=== PATIENT | female | born 1945 | race Caucasian/White ===

== ENCOUNTER → 2018-12-10 | Day surgery (SDC) | payer MEDICARE ==
[2018-12-08 14:43] LABS: BASOPHILS # (AUTO) 0.1 (0.0-0.1); EOSINOPHILS # (AUTO) 0.2 (0.0-0.4); EOSINOPHILS % 1.7 % (0.0-6.0); HEMATOCRIT 34.9 % (34.2-44.1); HEMOGLOBIN 11.3 g/dL (12.0-16.0); LYMPHOCYTES # (AUTO) 2.5 (1.0-3.2); LYMPHOCYTES % 27.8 % (18.0-39.1); MEAN CORPUSCULAR HGB CONC 32.4 g/dL (31-35); MEAN CORPUSCULAR VOLUME 86.4 fL (81-99); MONOCYTES # (AUTO) 0.9 (0.2-0.8); NEUTROPHILS # (AUTO) 5.4 (2.1-6.9); NEUTROPHILS % 59.2 % (38.7-80.0); PLATELET COUNT 335 x10e3/uL (140-360); RED BLOOD COUNT 4.04 x10e6/uL (3.6-5.1)
[2018-12-08 14:57] LABS: ALANINE AMINOTRANSFERASE 13 IU/L (0-55); ALBUMIN/GLOBULIN RATIO 1.1 (0.8-2.0); ALKALINE PHOSPHATASE 98 IU/L (40-150); ANION GAP 11.8 mmol/L (8-16); BLOOD UREA NITROGEN 13 mg/dL (7-26); BUN/CREATININE RATIO 16 (6-25); CALCIUM 9.8 mg/dL (8.4-10.2); CARBON DIOXIDE 27 mmol/L (22-29); CHLORIDE 100 mmol/L (98-107); EST GLOMERULAR FILTRATION RATE > 60 ML/MIN (60-); GLUCOSE 99 mg/dL (74-118); POTASSIUM 3.8 mmol/L (3.5-5.1); SODIUM 135 mmol/L (136-145)
--- NOTE | 2018-12-08 15:22 | Diagnostic Imaging Report ---
EXAMINATION: PA and lateral views of the chest. COMPARISON: None CLINICAL HISTORY: Preoperative study for urological procedure DISCUSSION: Lungs are well-inflated and without focal airspace consolidation, pleural effusion, or pneumothorax. Tortuous thoracic aorta with atherosclerotic calcification. Normal heart size. No overt pulmonary edema. Regional skeletal structures are intact. IMPRESSION: No acute cardiopulmonary abnormalities. Signed by: Dr. Josué Baird M.D. on 12/08/2018 3:19 PM
[~2018-12-10] MED LIST: ALBUTEROL SULF 0.083% NEB SOLN 3 ML NEB ONE; ALBUTEROL SULFAT2 MG PO; ALBUTEROL0.63 MG/3 NEB; BUPROPION HCL75 MG PO; CARVEDILOL12.5 MG PO; CEFAZOLIN SOD 2 GM/D5W 50ML 50 ML IV ONE; DEXAMETHASONE SOD PHOS INJ 4 MG/ML VIAL ONE; HYDROCODONE/APAP 5MG-325MG TAB ONE; IOPAMIDOL 610MG/1ML 300 MG/ML VIAL IV ONE; IPRATROPIU0.2 MG/1 M NEB; LIDOCAINE HCL 2% LOCAL INJ 5 ML SDV VIAL INJ ONE; MEPERIDINE HCL INJ 25 MG/ML VIAL ONE; MIDAZOLAM HCL 2 MG/2 ML VIAL ONE; ONDANSETRON HCL INJ 2MG/ML 2ML 2 MG/ML VIAL ONE; PROAIR HFA INH8.5 GM IJ; PROPOFOL IV EMULSION 10 MG/ML 20 ML VIAL ONE; SEVOFLURANE INHAL SOLN 250 ML PEN BTL ONE; SIMVASTATIN20 MG PO; SODIUM CHLORIDE 0.9% 50ML 50 ML ONE; TALTZ IJ; TRELEGY IJ
--- OUTSIDE RECORDS SUMMARY | 2018-12-10 16:04 | XMS REPORT ---
Author Author [facility] Address Unknown Phone Unavailable Care Team Providers [employer] Name Role Phone RM MACDONALD Unavailable Unavailable Problems This patient has no known problems. Allergies, Adverse Reactions, Alerts This patient has no known allergies or adverse reactions. Medications This patient has no known medications. Results Test Description Test Time Test Comments Text Results Atomic Results Result Comments CHEST 2 VIEWS 2018-12-08 15:18:00 [facility] [address] [place] [address] Patient Name: KANE FLORES MR #: [id number] : 1945 Age/Sex: 73/F Req #: [id number] Adm Physician: Ordered by: RM MACDOANLD MD Report #: [id number] Location: OR Room/Bed: Procedure: [id number] DX/CHEST 2 VIEWS Exam Date: 12/08/18 Exam Time: 1430 REPORT STATUS: Signed EXAMINATION: PA and lateral views of the chest. COMPAR ТАТЬЯНА: None CLINICAL HISTORY: Preoperative study for urological procedure DISCUSSION: Lungs are well-inflated and without focal airspace consolidation, pleural effusion, or pneumothorax. Tortuous thoracic aorta with atherosclerotic calcification. Normal heart size. No overt pulmonary edema. Regional skeletal structures are intact. IMPRESSION: No acute cardiopulmonary abnormalities. Signed by: Dr. Delfin Blank M.D. on 12/08/2018 3:19 PM Dictated By: DELFIN BLANK MD 18 Transcribed By: STEVEN on 12/08/181518 COPY TO: RM MACDONLAD MD
[2018-12-10 18:20] VITALS: BP 138/67
--- NOTE | 2018-12-11 16:24 | Operative Report ---
DATE OF PROCEDURE: 12/10/2018 SURGEON: Vick López MD PREOPERATIVE DIAGNOSIS: Gross hematuria. 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 OPERATION PERFORMED: Cystoscopy, retrograde pyelograms, barbotage for cytology after laser vaporization of a portion of the tumor, placement of right double-J and Dillon catheter, right flexible ureteroscopy was performed with laser evaporation. ANESTHESIOLOGIST: Staff. ANESTHESIA: General. FINDINGS: The patient had a normal urethra. The bladder showed no tumors or stones. There were multiple clots within the bladder that were irrigated out. Previous redness on the left side of the bladder seen on cystoscopy in the office was not visualized at this point. The patient had a ureteroscopy. The ureter was normal. There were no tumors seen. No abnormalities whatsoever. The kidney had blood and a few clots that were irrigated out. Visualization was fairly good. Pictures were taking of the findings. Upper pole calyx was totally abnormal. A tumor approximately 1.5 cm was noted in the infundibulum of the upper pole calyx. The calyx otherwise, once it was visualized, it was normal. Calyx is in the middle and lower pole. The edges did not look normal. The calyx itself looked slightly beefy red. At this point, laser was done of the tumor in the infundibulum upper pole calyx. Barbotage was done again. This was sent in separately. PROCEDURE IN DETAIL: With the patient under satisfactory general anesthesia, the patient was placed in the supine position on the operating table. Legs were placed on stirrups. Genitalia was then prepped with Betadine soap and solution and draped in usual manner. A #22-Urdu cystourethroscope was passed per urethra into the bladder. Using the #8 cone-tip ureteral catheter, contrast media was injected retrograde up the left ureter and the right ureter. Both ureteral orifices were normal. There were multiple clots in the bladder present. After the bladder was carefully inspected, the clots were removed, no other abnormalities were noted in the bladder and attention was placed to the retrograde pictures that showed a filling defect in the infundibulum of the upper pole right collecting system. At this point, an extra stiff guidewire was introduced all the way up to the kidney. The intermediate portion of the ureter was then dilated over the guidewire up to a size 12-Urdu and the digital flexible ureteroscope was introduced up the ureter removing the guidewire after the ureteroscope was placed in the ureter. Advancement of the ureteroscope was done slowly inspecting all of the frias of the ureter and there were no lesions seen. Once in the renal pelvis, there was blood. This had to be barbotage so that visualization could be done. The barbotage urine that was down with a syringe was sent in for pathological specimen, in other words for cytology. First calyx to look at was the lower pole calyx, the middle pole calyx would be looked next. No abnormalities in the infundibulum were noted, but the calyx itself showed some beefy redness, I do not know if it was from the blood that was present, reaction to that blood or if this was indicative of some disease. Looking at the upper pole infundibulum and calyx, one immediately noted that there was a mass in the infundibulum, this mass was bleeding. I looked in the frias of the infundibulum and the calyx and they looked completely abnormal, corrugated. The mass was approximately 1 cm to 1.5 cm. Attempts at engaging this mass with a Nitinol basket failed, I was trying to get some tissue to send in for pathological specimen. Having failed, then I introduced a 200 micron fiber of the laser and I shocked the tumor multiple times to get tissue floating in the kidney, which I quickly barbotage again using a syringe with normal saline and this was done twice, sending that specimen also for cytology. At this point, I attempted to stop the bleeding as best as I could with the laser. This was quite difficult, but at the end, it was not bleeding as much as when we started. There was still some oozing from that area. At that point, my decision was to put up a double-J for overnight. I placed a guidewire under direct vision. I filled up the pelvis with contrast media and removed the ureteroscope. Over the guidewire, a 6-Urdu Universa double-J was introduced and coiled in the renal pelvis. Once that was done, the sleeve was used to disengage the pusher and leave the double-J in place, the string was then taped to the patient's mons pubis. At that point, I introduced a size 16 Dillon catheter and left it indwelling. The patient was taken to the recovery room in satisfactory condition. DISCHARGE INSTRUCTION: I gave the patient some Keflex and tramadol. Diet as tolerated. Medicines that she takes at home can continue to be ingested. I gave the son, who was present in the waiting area video pictures, told him that I wanted to see her afternoon in my office so that I can remove the drains that I placed in. I also told him that she had a tumor that she needed to have further surgery and that I will see her in the office to arrange that day. MD JASON Pulido/JANETT /[id number]
--- NOTE | 2018-12-11 17:27 | Diagnostic Imaging Report ---
Retrograde pyelogram Technique: Fluoroscopic spot images are provided from intraoperative retrograde pyelogram. Request provided for diagnostic Radiology interpretation. History: Right-sided ureteroscopy, renal mass. Comparison: None. Findings: Initial images demonstrate cannulation of the bladder and subsequently the right ureter. The entire right ureter is opacified, demonstrating no evidence of filling defect. The collecting system is opacified on the right. There is a filling defect with irregularity in the right upper pole collecting system. Cannulation of the left ureter with contrast opacification demonstrates no evidence of filling defects within the left ureter or collecting system. A portion of the mid left ureter is not well opacified, likely secondary to peristalsis. Final images demonstrate placement of a right-sided internal ureteral stent with the proximal pigtail in the right renal pelvis and the distal pigtail in the bladder. Conclusion: Filling defect with irregularity in the right upper pole collecting system, corresponding to mass noted on ureteroscopy. Biopsy performed and right-sided internal ureteral stent placed. No evidence of urothelial lesion in the bilateral ureters or left collecting system. Signed by: Dr. Enrico Greenwood MD on 12/11/2018 5:23 PM
== END | disposition home or self-care (01) ==
LOC: OR 11:18
PROVIDERS: ATTEND Urology
DX: D49.511 Neoplasm of unspecified behavior of right kidney (principal); R31.0 Gross hematuria; J44.9 Chronic obstructive pulmonary disease, unspecified; I10 Essential (primary) hypertension; F17.210 Nicotine dependence, cigarettes, uncomplicated; Z88.2 Allergy status to sulfonamides; Z01.810 Encounter for preprocedural cardiovascular examination; Z01.812 Encounter for preprocedural laboratory examination; Z01.818 Encounter for other preprocedural examination
CPT/HCPCS: 36415; 52356; 71046; 74420; 80053; 85025; 87086; 88112; 88305; 93005; C1758; C2625; J0690; J1100; J2001; J2175; J2250; J2405; J2704; Q9967

== ENCOUNTER → 2020-07-14 | Day surgery (SDC) | payer MEDICARE ==
[2020-07-11 13:47] LABS: BASOPHILS # (AUTO) 0.1 (0.0-0.1); EOSINOPHILS # (AUTO) 0.1 (0.0-0.4); HEMATOCRIT 41.4 % (34.2-44.1); HEMOGLOBIN 12.8 g/dL (12.0-16.0); LYMPHOCYTES # (AUTO) 1.8 (1.0-3.2); LYMPHOCYTES % 15.9 % (18.0-39.1); MEAN CORPUSCULAR HEMOGLOBIN 25.3 pg (28-32); MEAN CORPUSCULAR HGB CONC 30.9 g/dL (31-35); MONOCYTES # (AUTO) 1.2 (0.2-0.8); MONOCYTES % 11.1 % (4.4-11.3); NEUTROPHILS # (AUTO) 7.8 (2.1-6.9); NEUTROPHILS % 70.6 % (38.7-80.0); PLATELET COUNT 390 x10e3/uL (140-360); RED BLOOD COUNT 5.05 x10e6/uL (3.6-5.1); RED CELL DISTRIBUTION WIDTH 17.6 % (11.7-14.4)
[2020-07-11 14:15] LABS: ALBUMIN 3.8 g/dL (3.5-5.0); ALBUMIN/GLOBULIN RATIO 0.9 (0.8-2.0); ANION GAP 14.8 mmol/L (8-16); CALCIUM 9.2 mg/dL (8.4-10.2); CREATININE, SERUM 0.95 mg/dL (0.57-1.11); POTASSIUM 4.8 mmol/L (3.5-5.1)
[~2020-07-14] MED LIST changes: -ALBUTEROL SULF 0.083% NEB SOLN 3 ML NEB ONE; +AMLODIPINE BESYL5 MG PO; +B&O 60MG R/S 60 MG SUPP PR ONE; +CEFAZOLIN SOD 1 GM/NS 50ML 100 ML IV ONE; -CEFAZOLIN SOD 2 GM/D5W 50ML 50 ML IV ONE; +FENTANYL CITRATE/PF 100MCG/2 ML INJ ONE; -HYDROCODONE/APAP 5MG-325MG TAB ONE; +IOPAMIDOL 300MG/ML 50ML INFUS..BTL IV ONE; -IOPAMIDOL 610MG/1ML 300 MG/ML VIAL IV ONE; -MEPERIDINE HCL INJ 25 MG/ML VIAL ONE; -SODIUM CHLORIDE 0.9% 50ML 50 ML ONE; +TRELEGY ELLIPT1 EACH INH; +TYLENOL EXTRA500 MG PO; +VENTOLIN HFA18 GM INH; +VITAMIN D3250 MCG PO
[2020-07-14 10:30] VITALS: BP 136/73
== END | disposition home or self-care (01) ==
LOC: OR 07:07
PROVIDERS: ATTEND Urology
DX: C67.9 Malignant neoplasm of bladder, unspecified (principal); I10 Essential (primary) hypertension; J44.9 Chronic obstructive pulmonary disease, unspecified; F17.210 Nicotine dependence, cigarettes, uncomplicated; Z88.2 Allergy status to sulfonamides; Z01.810 Encounter for preprocedural cardiovascular examination; Z01.812 Encounter for preprocedural laboratory examination; Z01.818 Encounter for other preprocedural examination; Z20.828 Contact with and (suspected) exposure to other viral communicable diseases; Z99.81 Dependence on supplemental oxygen; Z85.53 Personal history of malignant neoplasm of renal pelvis
CPT/HCPCS: 36415; 52005; 52234; 71046; 74420; 80053; 85025; 87086; 87186; 88307; 88342; 93005; C1758; J0690; J1100; J2001; J2250; J2405; J2704; J3010; Q9967; U0002; 88305